=== PATIENT | male | born 1995 | race Caucasian/White ===

== ENCOUNTER 2018-09-14 18:39 | Emergency (ER) | payer OTHER ==
[~2018-09-14] VITALS: Ht 182.9 cm; Wt 90.7 kg
[2018-09-14 18:44] VITALS: BP 150/96
== END 2018-09-14 22:29 | disposition left against medical advice (07) ==
LOC: EDBD 18:39 → ER 18:39
DX: R07.0 Pain in throat (principal); M25.532 Pain in left wrist; M25.531 Pain in right wrist; Z53.21 Procedure and treatment not carried out due to patient leaving prior to being seen by health care provider

== ENCOUNTER 2018-09-15 01:19 | Emergency (ER) | payer OTHER | END 2018-09-15 01:44 | disposition left against medical advice (07) | LOC: EDBD 01:19 → ER 01:23 | DX: R52 Pain, unspecified (principal); Z53.21 Procedure and treatment not carried out due to patient leaving prior to being seen by health care provider ==